=== PATIENT | male | born 1935 | race Caucasian/White ===

== ENCOUNTER 2016-10-12 05:25 | Day surgery (SDC) | payer MEDICARE, OTHER ==
[2016-10-08 09:39] LABS: HEMATOCRIT 47.2 % (42.0-54.0); HEMOGLOBIN 15.4 g/dL (13.5-17.5); MCH 30.6 pg (26.0-34.0); MCHC 32.6 g/dL (31.0-37.0); MCV 93.8 fL (80.0-100.0); MEAN PLATELET VOLUME 11.4 fL (7.4-10.4); RBC 5.03 10x6/uL (4.20-6.10); RDW 13.4 % (11.5-14.5)
[2016-10-08 10:10] LABS: CALCIUM 8.9 mg/dL (8.5-10.1); CARBON DIOXIDE 29.1 mmol/L (21.0-32.0); CREATININE - SERUM 1.1 mg/dL (0.6-1.3); POTASSIUM - SERUM 4.1 mmol/L (3.5-5.1)
[~2016-10-12] VITALS: Ht 175.3 cm; Wt 98.9 kg
--- NOTE | ~2016-10-12 | HP ---
PATIENT: KRISTI JOHNSON V MEDICAL RECORD: [id number] ACCOUNT: [id number] LOCATION:[facility] : 39 ADMISSION DATE: 10/12/16 HISTORY AND PHYSICAL EXAMINATION HISTORY OF PRESENT ILLNESS: The patient has a complex colon polyp at the appendiceal orifice. I am going to plan for colonoscopy with argon plasma financial institution manager, possible tattooing. ALLERGIES: DEMEROL. HOME MEDICATIONS: Metoprolol, aspirin, Lipitor, lisinopril and hydrochlorothiazide, Xarelto. The patient has been off of Xarelto for 2 days. SOCIAL HISTORY: Nonsmoker. PAST MEDICAL AND SURGICAL HISTORY: Hypertension, aortic stenosis, heart rhythm problems, history of pacemaker. PHYSICAL EXAMINATION: GENERAL: The patient does not appear acutely ill. He does not appear chronically ill. VITAL SIGNS: Reviewed. HEAD: External ears appear normal. EYES: Extraocular movements are intact. NECK: Trachea is midline. CHEST: No intercostal retractions. PULMONARY: Nonlabored, no stridor. ABDOMEN: Nontender. EXTREMITIES: No peripheral cyanosis. IMPRESSION: Complex colon polyp at the appendiceal orifice. PLAN: Colonoscopy and polypectomy utilizing argon plasma financial institution manager. TRANSINT:[id number] Voice Confirmation ID: [id number] DOCUMENT ID: [id number] OSMAN PARK MD CC: MIKE HARRELL MD and BLANCA GEIGER MD [id number] DICTATION DATE: 10/12/16 1230 DEVICE ENGINEER: 10/12/16 1334 [facility] 10/12/16 [facility] [address] [place] [address]
--- NOTE | ~2016-10-12 | OP ---
PATIENT NAME: KRISTI JOHNSON V MEDICAL RECORD: [id number] :39 LOCATION:D.OPS ADMISSION DATE: SURGEON: SUNG PARK MD DATE OF OPERATION: 10/12/2016 PREOPERATIVE DIAGNOSIS: Complex colon polyp at the appendiceal orifice. It is complex due to its histology as well as its location in the thinnest part of the colon. POSTOPERATIVE DIAGNOSIS: Complex colon polyp at the appendiceal orifice. It is complex due to its histology as well as its location in the thinnest part of the colon, with only minimal regrowth of the polyp. PROCEDURES: 1. Total colonoscopy to cecum. 2. Hot biopsy forceps polypectomy times 1. SURGEON: Sung Park MD. ELECTRICAL ACCESSORIES I ASSEMBLER: None. BLOOD LOSS: Minimal. ANESTHESIA: General. COMPLICATIONS: None. This procedure was performed under general anesthesia as I had planned to utilize the argon plasma drapery counselor. As it turned out, there was so little regrowth of the polyp that I was able to remove it utilizing the hot biopsy forceps polypectomy technique. OPERATIVE COURSE: The patient was conveyed to the operating room electively on 10/12/2016. General anesthesia was induced by the anesthesia staff. The patient was placed in the Guerra position. A digital rectal examination was performed. A colonoscope was inserted through the anus. It was easily advanced to the cecum. The prep was adequate. Utilizing direct imaging as well as narrow band imaging, I was able to visualize the polyp. This was easily visualized with narrow band imaging. Utilizing the hot biopsy forceps polypectomy technique, the polyp was removed in its entirety. I then slowly withdrew the endoscope. I irrigated and aspirated extensively. The pullback was greater than an 18-minute pullback. I noted no other polypoid lesions. No masses. Retroflexed views were obtained in the rectum. I then unretroflexed the scope and removed it under direct vision. I plan to see the patient in my office in 2-3 weeks. I will plan for his next colonoscopy to be in the GI lab with anesthesia in 3 years. TRANSINT:[id number] Voice Confirmation ID: [id number] DOCUMENT ID: [id number] OPERATIVE REPORT [id number] KRISTI JOHNSON V SUNG PARK MD CC: [id number] DICTATION DATE: 10/12/16 1238 REFERENCE SERVICES HEAD: 10/12/16 1622 [facility] 10/12/16 [facility] [address] [id number]
[~2016-10-12 05:25] MED LIST: BAYER CHEWABLE81 MG PO; LIPITOR10 MG PO; LISINOPRIL-HCTZ1 T11 PO; TOPROL XL25 MG PO; XARELTO20 MG PO
[2016-10-12 05:49] VITALS: BP 144/84; Ht 175.3 cm; Wt 98.9 kg
== END 2016-10-12 14:10 | disposition home or self-care (01) ==
LOC: D.OPS 05:25 → D.PAN 07:30 → D.OPS 07:30 → D.PAN 08:00 → D.OPS 14:10
PROVIDERS: Anesthesiology
DX: D12.0 Benign neoplasm of cecum (principal); I10 Essential (primary) hypertension; I35.0 Nonrheumatic aortic (valve) stenosis; Z95.0 Presence of cardiac pacemaker; Z79.82 Long term (current) use of aspirin; Z79.01 Long term (current) use of anticoagulants; Z79.899 Other long term (current) drug therapy; Z88.5 Allergy status to narcotic agent

== ENCOUNTER 2020-02-26 07:02 | Day surgery (SDC) | payer MEDICARE, OTHER ==
[~2020-02-26] VITALS: Ht 175.3 cm; Wt 95.5 kg
--- NOTE | ~2020-02-26 | OP ---
PATIENT NAME: KRISTI JOHNSON V MEDICAL RECORD: [id number] :39 LOCATION:D.OPS ADMISSION DATE: SURGEON: SUNG PARK MD DATE OF OPERATION: 02/26/2020 PREOPERATIVE DIAGNOSIS: History of a polyp at the appendiceal orifice. POSTOPERATIVE DIAGNOSES: History of a polyp at the appendiceal orifice with recurrence of the polyp, which was a villous polyp and was approximately 1.3 cm in greatest dimension. PROCEDURES: 1. Total colonoscopy to cecum. 2. Hot biopsy forceps polypectomy of a recurrent appendiceal orifice polyp. SURGEON: Sung Park MD MOBILE PHONE SALESPERSON: None. BLOOD LOSS: Minimal. ANESTHESIA: IV sedation. COMPLICATIONS: None. The risks, possible complications and alternatives to the procedure were explained to the patient. He elects to proceed. The discussion specifically included, but was not limited to, bleeding requiring emergency reoperation, infection, as well as endoscopic perforation. ENDOSCOPIC COURSE: The patient was conveyed to endoscopy suite electively on 02/26/2020. IV sedation was induced by the anesthesia staff. The patient was placed in the Guerra position. A digital rectal examination was performed. A colonoscope was inserted through the anus. It was easily advanced to the cecum. Upon withdrawal, I irrigated and aspirated extensively. A recurrent appendiceal orifice polyp was noted and it was removed in its entirety utilizing the hot biopsy forceps polypectomy technique. The pullback was greater than a 15-minute pullback. I utilized normal imaging as well as narrow band imaging during pullback. I dragged the folds. A retroflexed view was obtained in the rectum. It revealed enlarged internal hemorrhoids. I then unretroflexed the scope and removed it under direct vision. I will see the patient in my office in 2-3 weeks. I will plan for his next colonoscopy to take place in 3 years. TRANSINT:[id number] Voice Confirmation ID: [id number] DOCUMENT ID: [id number] OPERATIVE REPORT [id number] KRISTI JOHNSON SUNG BROWN MD CC: BLANCA GEIGER [id number] DICTATION DATE: 02/26/20 1107 SERVICE SUPERVISOR: 02/26/20 1349 [facility] [address] [place] [address]
[2020-02-26 08:10] VITALS: BP 141/87; Ht 175.3 cm; Wt 95.5 kg
[2020-02-26 08:35] LABS: BASOPHILS 0.8 % (0-2); EOSINOPHILS 1.4 % (0-7); HEMATOCRIT 48.7 % (42.0-54.0); HEMOGLOBIN 15.6 g/dL (13.5-17.5); IMMATURE GRANULOCYTES 0.2 % (0-5); LYMPHOCYTES 23.9 % (15-50); MCH 30.5 pg (26.0-34.0); MCV 95.1 fL (80.0-100.0); MEAN PLATELET VOLUME 11.8 fL (7.4-10.4); MONOCYTES 12.2 % (2-11); NEUTROPHILS 61.5 % (40-80); PLATELET COUNT 154 10x3/uL (130-400); RBC 5.12 10x6/uL (4.20-6.10); RDW 13.2 % (11.5-14.5); WBC 5.2 10x3/uL (4.8-10.8)
[2020-02-26 08:39] LABS: CALC OSMOLALITY 276 mosm/kg (275-300); CALCIUM 8.6 mg/dL (8.5-10.1); CARBON DIOXIDE 31.6 mmol/L (21.0-32.0); CHLORIDE - SERUM 102 mmol/L (98-107); GLUCOSE 96 mg/dL (74-106); POTASSIUM - SERUM 4.1 mmol/L (3.5-5.1); SODIUM 137 mmol/L (136-145); UREA NITROGEN 21 mg/dL (7-18); eGFR NON AFRICAN AMERICAN 76 mL/min (90-120)
--- NOTE | 2020-02-26 13:58 | NUR ---
[address] PARK. PROCEDURE FINDINGS DISCUSSED WITH PATIENT. Trini Owen.N. 1135 UP TO BATHROOM. AMBULATORY WITHOUT DIFFICULTY. PASSED AUDIBLE FLATUS. BACK TO BED. Trini NobleN. 1150 IV DC'ED WITH CATH INTACT BY Syl PALACIO CNA. PT DRESSING. Trini Owen.N. 1210 GIVEN MED REC, RTC APPT., SHEET LISTING NSAIDS TO AVOID & [facility] POST ENDOSCOPY D/C INSTRUCTIONS. PT VOICED UNDERSTANDING. TO PRIVATE CART PER WHEELCHAIR BY STAFF, HOME WITH , MRS. JOHNSON. Trini PAL R.N.
--- NOTE | 2020-02-29 15:20 | HP ---
PATIENT: KRISTI JOHNSON V MEDICAL RECORD: [id number] ACCOUNT: [id number] LOCATION:[facility] : 39 ADMISSION DATE: 02/26/20 PCP: BLANCA GEIGER MD HISTORY AND PHYSICAL EXAMINATION CHIEF COMPLAINT: History of colon polyps, in need of surveillance colonoscopy. HISTORY: The patient had no rectal bleeding. No abdominal pain. HOME MEDICATIONS: Lisinopril, hydrochlorothiazide, as well as aspirin. ALLERGIES: DEMEROL. PAST MEDIAL AND SURGICAL HISTORY: History of CVA, history of hypertension, history of aortic stenosis, history of pacemaker. PHYSICAL EXAMINATION: GENERAL: The patient does not appear acutely ill. He does not appear chronically ill. VITAL SIGNS: Reviewed. EARS: External ears appear normal. EYES: Extraocular movements are intact. NECK: Trachea is midline. CHEST: No intercostal retractions. PULMONARY: Nonlabored and no stridor. IMPRESSION: History of colon polyps, in need of surveillance colonoscopy. PLAN: Colonoscopy. TRANSINT:[id number] Voice Confirmation ID: [id number] DOCUMENT ID: [id number] OSMAN PARK MD at 1520 CC: BLANCA GEIGER [id number] DICTATION DATE: 02/26/20 1032 RETAIL STOCK CLERK: 02/26/[address] [facility] 02/26/20 [facility] [address] [place] [address]
== END 2020-02-26 12:10 | disposition home or self-care (01) ==
LOC: D.OPS 07:02
PROVIDERS: Anesthesiology; ATTEND Surgery
DX: Z86.010 Personal history of colon polyps (principal); I10 Essential (primary) hypertension; Z95.0 Presence of cardiac pacemaker; Z86.73 Personal history of transient ischemic attack (TIA), and cerebral infarction without residual deficits